=== PATIENT | male | born 1945 | race Caucasian/White ===

== ENCOUNTER 2017-01-31 09:23 | Inpatient (IN) | payer OTHER, BC ==
[~2017-01-31] VITALS: Ht 175.3 cm; Wt 102.8 kg
[2017-01-31] VITALS (28 sets, daily range): BP systolic 71–128; BP diastolic 40–66
--- NOTE | ~2017-01-31 | EKG ---
[address] [address] ELECTROCARDIOGRAM REPORT Name: TEOFILO BANSAL Room #: 245-P ADM IN M.R.#: [id number] Admission: 01/31/17 Attend Phys: Warner Celis DO Discharge: Date of : 43 Report #: [id number] THIS REPORT FOR: //name// [facility] Test Date: 2017-01-31 Test Time: 19:42:42 Pat Name: TEOFILO BANSAL Department: Room: 245 P Gender: M Senior Research Fellow: Viry MEJIA : 1945 Requested By: Teofilo Hobbs Order Number: [id number] MD: George Alcantar Measurements Intervals [place] Rate: 133 P: 245 TX: 123 QRS: 47 QRSD: 117 T: 23 QT: 303 QTc: 451 Interpretive Statements Sinus or ectopic atrial tachycardia Right bundle branch block Low voltage, precordial leads Compared to ECG 01/31/2017 09:45:10 Right bundle-branch block now present Sinus rhythm no longer present Electronically Signed On 01-31-2017 22:56:11 CDT by George Alcantar [email or web address] <ELECTRONICALLY SIGNED> By: George Alcantar MD 01/31/17 2256 41 41 George Alcanatr MD /EPI
--- NOTE | ~2017-01-31 | HC ---
[facility] [place] [address] CONSULTATION Name: TEOFILO BANSAL Room #: 245-P [facility] IN M.R.#: [id number] Admission: 01/31/17 Attend Phys: Warner Celis DO Discharge: Date of : 43 Report #: [id number] THIS REPORT FOR: //name// CC: Teofilo Celis DO DATE OF SERVICE: 01/31/2017 PULMONARY CRITICAL CARE CONSULTATION REFERRING PROVIDER: Dr. Teofilo Hobbs, Dr. Warner Vazquez. REASON FOR CONSULTATION: Dyspnea, sepsis. CHIEF COMPLAINT: Weakness, fever. HISTORY OF PRESENT ILLNESS: Our group was asked to see the patient in consultation while hospitalized in the ICU at [facility]. A pleasant 71-year-old male without any significant past pulmonary history, who presented to the Emergency Department, has had several weeks of general malaise, low-grade fevers and sweats, lightheadedness, dizziness, was felt to be a prostatitis and urinary tract infection, treated with Bactrim. After 2 weeks, it was not improving, felt extremely poor today and presented to the Emergency Department for further evaluation and was noted to be hypotensive, septic and also noted to have a renal calculus in the right ureter and findings consistent with pyelonephritis, underwent percutaneous nephrostomy tube placement, after resuscitation in the Emergency Department and receiving antibiotics quickly decompensating post nephrostomy tube. While in the ICU, became very tachypneic and involved severe lactic acidosis with a pH of 7.2. Initially attempted a BiPAP placement; however, the patient did not tolerate due to claustrophobia and subsequently removed. Our patient currently is reasonably comfortable on low flow nasal cannula O2. ALLERGIES: None known. PAST MEDICAL HISTORY: 1. Coronary artery disease, status post coronary bypass grafting in 2005. 2. Hypertension. 3. Osteoarthritis, status post bilateral total knee arthroplasties. 4. Cervical radiculopathy. 5. History of iliac aneurysm status post percutaneous stent. OUTPATIENT MEDICATIONS: Include Crestor, aspirin, fish oil, allopurinol, Levitra, Aceon, Bystolic and Zetia. [facility] [address] [place] [address] CONSULTATION Name: TEOFILO BANSAL Room #: 245-P [facility] IN .R.#: [id number] Admission: 01/31/17 Attend Phys: Warner Celis DO Discharge: Date of : 43 Report #: [id number] SOCIAL HISTORY: The patient is a remote tobacco use, quitting over 30 years ago. No significant alcohol consumption. 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 FAMILY HISTORY: Negative for any significant pulmonary disease. REVIEW OF SYSTEMS: CONSTITUTIONAL: Fever and chills as well as rigors. ENT: No upper respiratory congestion, rhinorrhea or dysphagia. CARDIOVASCULAR: Known cardiac disease. No significant chest pain or palpitations. GASTROINTESTINAL: Some nausea and vomiting, no diarrhea, constipation or abdominal pain. GENITOURINARY: No dysuria, no frequency. Does have a mild hematuria. No flank pain. INTEGUMENT: Denies any rash. MUSCULOSKELETAL: No joint pains or swelling. PHYSICAL EXAMINATION: VITAL SIGNS: Temperature 38.7, pulse currently 120s and regular, respiratory rate 30, blood pressure 128/59. GENERAL: This is a pleasant elderly male, does not appear in any distress. Speaking in full sentences. HEENT: Clear oropharynx. No thrush. No dental caries. NECK: Supple, no lymphadenopathy. LUNGS: Clear. No wheezes or crackles. CARDIOVASCULAR: Heart regular. No murmurs or gallops. Tachycardic. ABDOMEN: Soft, nontender, no masses. Right percutaneous nephrostomy tube noted to be in place with purulent drainage. EXTREMITIES: Warm, 2+ pulses, no edema. INTEGUMENT: Revealed significant diaphoresis of the head and scalp and upper chest. LABORATORY DATA: White blood cell count 28,000, hemoglobin 12, hematocrit 37, platelet count 272. Sodium is 134, potassium 5.5, chloride 104, bicarbonate 15, BUN 56, creatinine 4.0, glucose IMAGING: Chest x-ray reveals clear lung norman. No infiltrates or effusions, nothing to suggest pulmonary edema. IMPRESSION: 1. Severe sepsis secondary to pyelonephritis. 2. Pyelonephritis. 3. Nephrolithiasis, status post percutaneous nephrostomy tube. [address] [address] CONSULTATION Name: TEOFILO BANSAL Room #: 245-P [facility] IN M.R.#: [id number] Admission: 01/31/17 Attend Phys: Warner Celis, DO Discharge: Date of : 43 Report #: [id number] 4. Acute renal failure. 5. History of coronary artery disease. 6. Severe metabolic/lactic acidosis. SUGGESTIONS: 1. Follow up arterial blood gas. 2. Continue resuscitative efforts with aggressive hydration, nothing on x-ray to suggest any pulmonary edema as he does feel comfortable increasing ongoing IV fluids. 3. Antibiotics per infectious disease service. 4. Continue ICU care. 5. Follow up arterial blood gas and lactate this evening and in a.m. 6. BiPAP if needed. 7. Discussed resuscitate status with the patient. Understand plans for do not resuscitate if any catastrophic event. However, the patient seemed agreeable to intubation if needed to support through current septic event. The patient discussed further with his . Total critical care time 45 minutes, not including procedures. Discussed with family at bedside as well as nursing. By: [id number] Abdulaziz Waters MD /anika
--- NOTE | ~2017-01-31 | EKG ---
[place] [address] [facility] [place] [address] ELECTROCARDIOGRAM REPORT Name: NIMISHASARTHAK Baires 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
--- NOTE | ~2017-01-31 | HC ---
[facility] [place] [address] CONSULTATION Name: SARTHAK BANSAL Room #: 245-P [facility] IN M.R.#: [id number] Admission: 01/31/17 Attend Phys: Warner Celis DO Discharge: Date of : 43 Report #: [id number] THIS REPORT FOR: //name// CC: Bobby Celis REASON FOR THE CONSULTATION: Elevated creatinine. REASON FOR PRESENTATION: Weakness, nausea and vomiting of few weeks' duration. 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 He had some weakness, fever, night sweats, chills, lightheadedness, nausea, vomiting for the last couple of weeks. He visited with his primary care physician and was told that he has a urinary tract infection and was prescribed Bactrim. He continued to have the symptoms. He is known to have nephrolithiasis with remote episode if nephrolithiasis that passed 20 years ago. He presented to the Emergency Room and he was found to be hypotensive with septic shock. He was found to have an obstructive right ureterovesical stone. He had a percutaneous nephroureteral stent placed. On presentation, his creatinine was 3.7. This has picked at 4.2 and it is down to 4.1. He was significantly acidotic when he came in on January 31 with lactic acid of 7.81. He is known to have coronary artery disease, status post CABG. He told me that he has been taking significant Aleve for the last 25 years. PAST MEDICAL HISTORY: 1. Coronary artery disease, status post CABG. 2. Hyperlipidemia. 3. Nephrolithiasis. 4. Recent urinary tract infections. 5. Bilateral total knee arthroplasty. 6. Iliac aneurysm status post percutaneous stent. SOCIAL HISTORY: No current drug or alcohol abuse. 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 FAMILY HISTORY: No known chronic kidney disease in the family. HOME MEDICATIONS: Include the followin. . 2. Bystolic. 3. Aspirin. 4. Aleve. 5. Crestor. 6. Allopurinol. REVIEW OF SYSTEMS: [facility] [address] [place] [address] CONSULTATION Name: SARTHAK BANSAL Room #: 245-P [facility] IN ..#: [id number] Admission: 01/31/17 Attend Phys: Warner Celis DO Discharge: Date of : 43 Report #: [id number] GENERAL: Significant for weakness, fever or chills. CARDIOVASCULAR: No chest pain or palpitation. PULMONARY: No cough or hemoptysis. GASTROINTESTINAL: Significant for nausea or vomiting. GENITOURINARY: No gross hematuria. He had some prostatitis symptoms. MUSCULOSKELETAL: Diffuse arthralgias, mainly in the knees. PHYSICAL EXAMINATION: GENERAL: He is alert and oriented, in no apparent distress. VITAL SIGNS: Blood pressure is 113/60. HEAD AND NECK: No jugular venous distention, no bruit and no thyromegaly. CHEST: Clear to auscultation bilaterally. CARDIOVASCULAR: Regular with no rub detected. ABDOMEN: Soft and nontender with no hepatosplenomegaly. He has a right-sided nephrostomy tube placed. LOWER EXTREMITIES: No edema. LABORATORY VALUES: Reviewed. White blood cell count is 29.1. Cultures still pending. Chemistry from today revealed a sodium of 138, potassium of 5.4, carbon dioxide of 18, BUN of 59 and creatinine of 4.1. IMAGING DATA: Including his abdomen and pelvic CT was reviewed and this revealed as I have stated calculus that is impacted in the right ureterovesicular junction. ASSESSMENT, IMPRESSION AND PLAN: 1. Acute kidney injury. 2. Septic shock due to have an obstructive nephrolithiasis. 3. Coronary artery disease. 4. Anion gap acidosis. 5. Mild hyperkalemia. 6. Status post right nephroureteral stent placement. 7. Continue with the bicarbonate drip. 8. Very adequate urine output. 9. Watch electrolytes. 10. Antibiotics. 11. Status post stent, expect his kidney function to continue to improve. Now, his creatinine has leveled. He has a very long history of nonsteroidal anti-inflammatory medications and we will have just to monitor for now. 12. Off the nonsteroidal anti-inflammatory medications for now. 13. Wean off pressors. 14. We will continue to follow along. <ELECTRONICALLY SIGNED> By: Flora Velazquez MD 02/02/17 [phone] Flora Velazquez MD /nt
--- NOTE | ~2017-01-31 | 2DMMODE ---
[facility] [address] [place] [address] 2 D/M-MODE ECHOCARDIOGRAM Name: SARTHAK BANSAL Room #: 170-22 ADM IN ..#: [id number] Admission: 01/31/17 Attend Phys: Warner Celis, Discharge: Date of : 43 Date of Service: 01/31/17 1644 Report #: [id number] THIS REPORT FOR: //name// APPROVED REPORT Study performed: 01/31/2017 15:22:43 EXAM: Comprehensive 2D, Doppler, and color-flow Echocardiogram Patient Location: Echo lab Status: routine BSA: 2.13 BP: 85/41 mmHg Other Information Study Quality: Adequate Indications Sepsis Dyspnea CAD 2D Dimensions RVDd: 44.55 mm LVEF(%): 39.52 (>50%) IVSd: 11.64 (7-11mm) LVOT Diam: 20.79 (18-24mm) LVDd: 47.55 mm PWd: 11.70 (7-11mm) Ascending Ao: 33.31 (22-36mm) LVDs: 38.43 (25-40mm) Aortic Root: 30.66 mm IVC: 23.00 mm Hodge's LVEF: 39.52 % Volumes Left Atrial Volume (Systole) Single Plane 4CH: 43.08 mL Single Plane 2CH: 39.35 mL LA ESV Index: 22.00 mL/m2 Aortic Valve AoV Peak Esvin.: 1.41 m/s AO Peak Gr.: 7.93 mmHg LVOT Max P.79 mmHg LVOT Max V: 0.84 m/s CHARLY Vmax: 2.01 cm2 Mitral Valve E/A Ratio: 1.2 [facility] [place] [address] 2 D/M-MODE ECHOCARDIOGRAM Name: NIMISHASARTHAK Viry Room #: 170-[facility] IN ..#: [id number] Admission: 01/31/17 Attend Phys: Warner Celis, Discharge: Date of : 43 Date of Service: 01/31/17 1644 Report #: [id number] MV Decel. Time: 199.22 ms MV E Max Esvin.: 1.16 m/s MV A Esvin.: 0.94 m/s MV PHT: 57.77 ms IVRT: 51.90 ms Pulmonary Valve PV Peak Esvin.: 1.05 m/s PV Peak Gr.: 4.39 mmHg Pulmonary Vein P Vein S: 0.78 m/s P Vein A: 0.24 m/s P Vein D: 0.82 m/s P Vein A Dur.: 65.7 msec P Vein S/D Ratio: 0.95 Tricuspid Valve TR Peak Esvin.: 2.77 m/s RAP Estimate: 10.00 mmHg TR Peak Gr.: 30.68 mmHg Left Ventricle The left ventricle is normal size. Regional wall motion is not well visualized but grossly normal. Borderline concentric left ventricular hypertrophy. Left ventricular systolic function is at the lower limits of normal LVEF is 45-50%. Moderate diastolic dysfunction is present (pseudonormal filling). Right Ventricle Right ventricle is dilated. Right ventricle is mildly hypokinetic. Atria The left atrium size is normal. Right atrium is dilated. Aortic Valve The aortic valve is mildly calcified No aortic regurgitation is present. There is no aortic valvular stenosis. Mitral Valve The mitral valve is normal in structure. Mild mitral regurgitation. No evidence of mitral valve stenosis. Tricuspid Valve The tricuspid valve is normal in structure. There is moderate tricuspid regurgitation. The right atrial pressure is estimated at 10 mmHg. PAP is estimated at 41 mmHg. Pulmonic Valve [address] [address] 2 D/M-MODE ECHOCARDIOGRAM Name: SARTHAK BANSAL Room #: 170-22 [facility] IN .#: [id number] Admission: 01/31/17 Attend Phys: Warner Celis, Discharge: Date of : 43 Date of Service: 01/31/17 1644 Report #: [id number] The pulmonary valve is normal in structure. Mild pulmonic regurgitation. Great Vessels The aortic root is normal in size. IVC is dilated and collapses >50% with inspiration. Pericardium There is no pericardial effusion. There is no pericardial effusion. <Conclusion> Left ventricular systolic function is at the lower limits of normal LVEF is 45-50%. Right ventricle is dilated. Right atrium is dilated. The aortic valve is mildly calcified. No aortic valvular stenosis or insufficiency. The mitral valve is normal in structure. Mild mitral regurgitation. Pulmonary artery pressure of 40mmHg No pericardial effusion <ELECTRONICALLY SIGNED> By: Shamar Painting MD, FACC 01/31/17 1644 43 43 Shamar Painting MD, FACC /INF
--- NOTE | ~2017-01-31 | HC ---
[facility] [place] [address] CONSULTATION Name: NIMISHATEOFILO Viry Room #: 245-P [facility] IN M.R.#: [id number] Admission: 01/31/17 Attend Phys: Warner Celis DO Discharge: Date of : 44 Report #: [id number] THIS REPORT FOR: //name// CC: Bobby Celis REASON FOR CONSULTATION: Evaluate regarding septic shock. HISTORY OF PRESENT ILLNESS: The patient is a 71-year-old who presents with a 2-week history with urinary tract symptoms. Placed on Bactrim as an outpatient. Did not improve. Today, he was having intermittent fever and chills associated with gross hematuria. Presented to the Emergency Room where he was found to have hypotension along with a right UVJ stone associated with hydronephrosis. I discussed the case with ER staff. Had urology evaluate and set him up for a percutaneous nephrostomy tube. This was completed recently. He now is back in the intensive care unit having rigors, tachycardia and hypotension. Oxygen saturation has remained stable. He is on high-flow oxygen. The patient was alert, but he was unable to communicate very well due to his compromised state. He, however, was alert and cooperative as best as he could at that time. PAST MEDICAL HISTORY: Coronary artery disease, status post coronary bypass grafting. He has had an ileac aneurysm with a stent in place. Left knee arthroscopy, bilateral total knee replacements, hyperlipidemia and C5-C6 disk disease. ALLERGIES: None known. MEDICATIONS: As noted on his JUN, which were reviewed. He did receive vancomycin, Zosyn and ceftriaxone in the Emergency Room. Other medications as noted on his JUN, which were reviewed. FAMILY HISTORY: Noncontributory. SOCIAL HISTORY: He is a past smoker. No significant alcohol intake. REVIEW OF SYSTEMS: The patient has had no chest pain, no cough or sputum production. No nausea, vomiting or diarrhea. PHYSICAL EXAMINATION: VITAL SIGNS: Temperature is 101.7, heart rate 160, blood pressure in the 80s systolic. GENERAL: The patient was in marked distress with rigors. He was flush in the face. He had a right flank drain in place with clear urine. Review of the Interventional Radiology report showed purulent urine from the ureter at initial ____. He is on a high-flow oxygen. CARDIAC: He was tachycardic. Heart was otherwise without murmur. LUNGS: Scattered rhonchi. [facility] [address] [place] [address] CONSULTATION Name: TEOFILO BANSAL Room #: 245-P [facility] IN [facility]#: [id number] Admission: 01/31/17 Attend Phys: Warner Celis DO Discharge: Date of : 43 Report #: [id number] ABDOMEN: Soft and nontender. GENITOURINARY: External genitalia unremarkable. EXTREMITIES: Unremarkable. LABORATORY STUDIES: Sodium 132; potassium 5.6; bicarb at 20; creatinine 3.7, up from his baseline of 1.3. Liver function tests normal except for a bilirubin of 1.3, albumin at 3.1. Lactate this afternoon was 1.8. Troponin negative. BNP 4837. INR 1.2. Hemoglobin 13.1, platelet count 271,000, white count 35,000 with 11% bands. Urinalysis: Many WBCs, few RBCs, many bacteria. ABG is pending. Blood cultures are pending. Urine culture pending. Ureteral culture pending. CHEST X-RAY: No acute pulmonary infiltrates. CT SCAN OF THE ABDOMEN AND PELVIS: Calculus in the right ureter impacted at the right ureterovesicular junction. IMPRESSION AND PLAN: This is a 71-year-old with septic shock from right pyelonephritis and ureteral obstruction. Recommend combination antibiotic therapy. Sepsis protocol. Full support. The patient does state he wishes to be a do not resuscitate. This will be confirmed. Urology has been consulted. He has acute renal failure. Cardiac status is being monitored. We will continue his antibiotics adjusted for his renal failure. <ELECTRONICALLY SIGNED> By: Teofilo Hobbs MD 02/01/17 0835 [id number] Teofilo Hobbs MD /nt
[~2017-01-31 09:23] MED LIST: ACEON4 MG OR; ASPIRIN EC81 M1 OR; BYSTOLIC 5 MG5 M1 OR; FISHOIL OR; LIPITOR80 MG OR; LOVENOX SQ; NAPROSYN500 MG OR; PERCOCET 5-3251 EACH; VISTARIL 25 MG25 M1 PO; ZETIA10 MG OR; ZYLOPRIM OR
[2017-01-31] MEDS ORDERED: ASPIRIN325 PO (10:05)
[2017-01-31] MEDS ORDERED: CRESTOR5 MG PO (10:06)
[2017-01-31] MEDS ORDERED: ALLOPURINOL 30300 M2 PO (10:07)
[2017-01-31] MEDS ORDERED: LEVITRA20 MG PO (10:08)
[2017-01-31 11:26] LABS: HEMATOCRIT 40.6 % (42.0-52.0); HEMOGLOBIN 13.1 gm/dL (14.0-18.0); MCH 31.4 pg (26.0-34.0); MCHC 32.4 g/dL (28.0-37.0); PLATELET COUNT 271 thou/uL (150-400); RBC 4.18 mil/uL (4.50-6.00); RDW 14.9 % (10.5-14.5)
[2017-01-31 11:27] LABS: MANUAL DIFF YES
[2017-01-31 11:35] LABS: APTT 31.9 Seconds (24.5-32.8); INR 1.2; PROTIME 12.1 Seconds (9.3-11.4)
[2017-01-31 11:45] LABS: URINE BILIRUBIN 1+ (Negative); URINE BLOOD 1+ (Negative); URINE COLOR YELLOW; URINE GLUCOSE-RANDOM* NEGATIVE (Negative); URINE KETONES TRACE (Negative); URINE NITRITE POSITIVE (Negative); URINE PROTEIN (DIPSTICK) TRACE (Negative); URINE SPECIFIC GRAVITY >= 1.030 (1.003-1.035)
[2017-01-31 11:45] LABS: ALBUMIN 3.1 g/dL (3.4-5.0); ALKALINE PHOSPHATASE 118 U/L (46-116); BUN 52 mg/dL (7-18); CALCIUM 9.1 mg/dL (8.5-10.1); CREATININE 3.7 mg/dL (0.7-1.3); DIRECT BILIRUBIN 0.6 mg/dL (<0.1-0.3); GLUCOSE 88 mg/dL (74-106); SGOT 30 U/L (15-37); SGPT 24 U/L (30-65); TOTAL BILIRUBIN 1.3 mg/dL (<0.1-1.0); TOTAL PROTEIN 7.4 g/dL (6.4-8.2); TROPONIN-I < 0.04 ng/mL (<0.04-0.07)
[2017-01-31 11:51] LABS: ANION GAP 14 mmol/L (7-16); CHLORIDE 98 mmol/L (98-107); CO2 20 mmol/L (21-32); POTASSIUM 5.6 mmol/L (3.5-5.1); SODIUM 132 mmol/L (136-145)
[2017-01-31 11:59] LABS: ICTOTEST (BILI CONFIRMATORY) Positive (Negative)
[2017-01-31 12:01] LABS: ABSOLUTE NEUTROPHILS 30.8 thou/uL (1.4-8.2); TOTAL CELL COUNT 100
[2017-01-31 12:02] LABS: ANISOCYTOSIS 1+
[2017-01-31 12:05] LABS: CRYSTALS None Seen /LPF (None Seen)
[2017-01-31 12:06] LABS: HYALINE CASTS 4-10 Moderate /LPF (None Seen); SQUAMOUS 4-10 Moderate /LPF (0-3); URINE WBC >25 Many /HPF (0-5)
[2017-01-31 12:11] LABS: BACTERIA >30 Many /HPF (None Seen); URINE RBC 3-10 Few /HPF (0-2)
[2017-01-31 19:10] LABS: ABG SAMPLE TYPE ARTERIAL; BE(vivo) -14.8 mmol/L (-2 to +3); HCO3 12.1 mmol/L (22.0-26.0); LACTATE 7.81 mmol/L (0.5-2.0); O2(CT) 18.4 mL/dL (15.0-23.0); PCO2 31.8 mmHg (35.0-45.0); PO2 275.9 mmHg (80.0-100.0); STICK SITE L.BRACHIAL; pH 7.197 (7.360-7.450); sO2 99.5 % (92.0-98.0)
[2017-01-31 19:19] LABS: HEMATOCRIT 36.6 % (42.0-52.0); HEMOGLOBIN 11.7 gm/dL (14.0-18.0); MCH 31.2 pg (26.0-34.0); MCHC 31.8 g/dL (28.0-37.0); MCV 97.9 fL (80.0-100.0); RBC 3.74 mil/uL (4.50-6.00); RDW 15.1 % (10.5-14.5); WBC 28.3 thou/uL (4.0-11.0)
[2017-01-31 19:27] LABS: CALCIUM 7.8 mg/dL (8.5-10.1); POTASSIUM 5.5 mmol/L (3.5-5.1)
[2017-01-31 22:37] LABS: ABG SAMPLE TYPE ARTERIAL; HCO3 17.4 mmol/L (22.0-26.0); LACTATE 2.51 mmol/L (0.5-2.0); O2(CT) 16.5 mL/dL (15.0-23.0); O2Hb 95.4 % (92.0-98.0); PCO2 28.1 mmHg (35.0-45.0); PO2 86.8 mmHg (80.0-100.0); pH 7.409 (7.360-7.450); sO2 96.8 % (92.0-98.0); tCO2 18.2 mmol/L (24.0-30.0)
[2017-01-31 22:38] LABS: STICK SITE R.BRACHIAL
[2017-01-31 23:48] LABS: CALCIUM 7.6 mg/dL (8.5-10.1); CREATININE 4.2 mg/dL (0.7-1.3); POTASSIUM 4.8 mmol/L (3.5-5.1)
[2017-02-01] VITALS (69 sets, daily range): BP systolic 84–120; BP diastolic 46–91
[2017-02-01 04:05] LABS: HEMOGLOBIN 11.2 gm/dL (14.0-18.0); MCV 96.8 fL (80.0-100.0); PLATELET COUNT 218 thou/uL (150-400); RBC 3.61 mil/uL (4.50-6.00); RDW 15.3 % (10.5-14.5); WBC 29.1 thou/uL (4.0-11.0)
[2017-02-01 04:06] LABS: MANUAL DIFF YES
[2017-02-01 04:17] LABS: ALBUMIN 2.2 g/dL (3.4-5.0); CALCIUM 7.7 mg/dL (8.5-10.1); CREATININE 4.1 mg/dL (0.7-1.3); POTASSIUM 5.4 mmol/L (3.5-5.1); TOTAL PROTEIN 5.9 g/dL (6.4-8.2)
[2017-02-01 04:44] LABS: ABSOLUTE NEUTROPHILS 26.5 thou/uL (1.4-8.2); TOTAL CELL COUNT 100
[2017-02-01 04:45] LABS: LARGE PLATELETS OCCASIONAL
[2017-02-01 05:14] LABS: ABG SAMPLE TYPE ARTERIAL; BE(vivo) -7.9 mmol/L (-2 to +3); HCO3 16.6 mmol/L (22.0-26.0); LACTATE 2.73 mmol/L (0.5-2.0); O2(CT) 15.5 mL/dL (15.0-23.0); PCO2 30.6 mmHg (35.0-45.0); STICK SITE L.BRACHIAL; pH 7.351 (7.360-7.450); tCO2 17.5 mmol/L (24.0-30.0)
[2017-02-02] VITALS (27 sets, daily range): BP systolic 97–131; BP diastolic 54–76
[2017-02-02 05:46] LABS: HEMATOCRIT 31.5 % (42.0-52.0); HEMOGLOBIN 10.2 gm/dL (14.0-18.0); MCH 31.1 pg (26.0-34.0); MCHC 32.3 g/dL (28.0-37.0); MCV 96.1 fL (80.0-100.0); PLATELET COUNT 173 thou/uL (150-400); RBC 3.28 mil/uL (4.50-6.00); RDW 15.6 % (10.5-14.5); WBC 14.4 thou/uL (4.0-11.0)
[2017-02-02 05:49] LABS: MANUAL DIFF YES
[2017-02-02 06:02] LABS: ALBUMIN 1.7 g/dL (3.4-5.0); CALCIUM 7.8 mg/dL (8.5-10.1); CREATININE 3.5 mg/dL (0.7-1.3); MAGNESIUM 1.8 mg/dL (1.8-2.4); POTASSIUM 3.9 mmol/L (3.5-5.1)
[2017-02-02 08:32] LABS: ANISOCYTOSIS SLIGHT; OVALOCYTES FEW; TOTAL CELL COUNT 100
[2017-02-02 20:36] LABS: CALCIUM 7.8 mg/dL (8.5-10.1); CREATININE 3.3 mg/dL (0.7-1.3); POTASSIUM 4.1 mmol/L (3.5-5.1)
[2017-02-03 03:05] VITALS: BP 117/60
[2017-02-03 03:28] LABS: HEMATOCRIT 32.3 % (42.0-52.0); HEMOGLOBIN 10.5 gm/dL (14.0-18.0); MCH 31.1 pg (26.0-34.0); MCHC 32.6 g/dL (28.0-37.0); MCV 95.4 fL (80.0-100.0); PLATELET COUNT 190 thou/uL (150-400); RBC 3.38 mil/uL (4.50-6.00); RDW 15.5 % (10.5-14.5); WBC 14.8 thou/uL (4.0-11.0)
[2017-02-03 03:32] LABS: MANUAL DIFF YES
[2017-02-03 03:54] LABS: ALBUMIN 1.7 g/dL (3.4-5.0); CALCIUM 8.1 mg/dL (8.5-10.1); MAGNESIUM 1.9 mg/dL (1.8-2.4)
[2017-02-03 04:36] LABS: CREATININE 3.1 mg/dL (0.7-1.3)
[2017-02-03 06:54] VITALS: BP 118/68
[2017-02-03 07:08] LABS: ABSOLUTE NEUTROPHILS 11.5 thou/uL (1.4-8.2); TOTAL CELL COUNT 100
[2017-02-03 10:56] VITALS: BP 120/64
[2017-02-03 15:21] VITALS: BP 120/72
[2017-02-03 19:21] VITALS: BP 129/75
[2017-02-03 23:10] VITALS: BP 109/64
[2017-02-04 03:47] VITALS: BP 123/72
[2017-02-04 05:08] LABS: HEMATOCRIT 32.7 % (42.0-52.0); HEMOGLOBIN 10.6 gm/dL (14.0-18.0); MCHC 32.5 g/dL (28.0-37.0); MCV 95.4 fL (80.0-100.0); PLATELET COUNT 214 thou/uL (150-400); RBC 3.42 mil/uL (4.50-6.00); RDW 15.3 % (10.5-14.5); WBC 13.3 thou/uL (4.0-11.0)
[2017-02-04 05:26] LABS: MANUAL DIFF YES
[2017-02-04 05:30] LABS: ALBUMIN 1.7 g/dL (3.4-5.0); CALCIUM 8.1 mg/dL (8.5-10.1); CREATININE 2.3 mg/dL (0.7-1.3); MAGNESIUM 1.8 mg/dL (1.8-2.4); PHOSPHORUS 3.1 mg/dL (2.5-4.9); POTASSIUM 4.2 mmol/L (3.5-5.1)
[2017-02-04 06:02] LABS: ATYPICAL LYMPHS 1 %; METAMYELOCYTES 1 %; MYELOCYTES 1 %; PROMYELOCYTES 1 %; TOTAL CELL COUNT 100
[2017-02-04 07:21] VITALS: BP 123/72
[2017-02-04 08:00] VITALS: BP 124/69
[2017-02-04 12:00] VITALS: BP 126/71
[2017-02-04 16:00] VITALS: BP 130/61
[2017-02-04 20:06] VITALS: BP 142/67
[2017-02-05 03:41] VITALS: BP 134/75
[2017-02-05 07:17] LABS: HEMATOCRIT 36.8 % (42.0-52.0); HEMOGLOBIN 11.8 gm/dL (14.0-18.0); MCH 30.8 pg (26.0-34.0); MCV 96.1 fL (80.0-100.0); PLATELET COUNT 254 thou/uL (150-400); RBC 3.83 mil/uL (4.50-6.00); RDW 15.2 % (10.5-14.5); WBC 15.9 thou/uL (4.0-11.0)
[2017-02-05 07:26] LABS: MANUAL DIFF YES
[2017-02-05 07:36] LABS: ALBUMIN 1.9 g/dL (3.4-5.0); CREATININE 2.3 mg/dL (0.7-1.3); MAGNESIUM 1.9 mg/dL (1.8-2.4); PHOSPHORUS 2.8 mg/dL (2.5-4.9); POTASSIUM 4.5 mmol/L (3.5-5.1); TOTAL BILIRUBIN 0.7 mg/dL (<0.1-1.0); TOTAL PROTEIN 5.8 g/dL (6.4-8.2)
[2017-02-05 08:50] VITALS: BP 105/63
[2017-02-05 08:50] LABS: ABSOLUTE NEUTROPHILS 11.3 thou/uL (1.4-8.2); METAMYELOCYTES 7 %; MYELOCYTES 3 %; TOTAL CELL COUNT 100
[2017-02-05 08:51] LABS: ANISOCYTOSIS 1+
[2017-02-05 08:52] LABS: POLYCHROMASIA OCCASIONAL
[2017-02-05] MEDS ORDERED: CEFUROXIME250 MG PO (09:02)
[2017-02-05 10:15] VITALS: BP 105/63
[2017-02-05 13:12] VITALS: BP 105/63
== END 2017-02-05 16:45 | disposition home or self-care (01) | DRG 853 ==
LOC: ER 09:23 → ICU 13:00 → EROBS 13:00 → ICU 16:53 → 2N 02-02 12:34
PROVIDERS: Hospitalist; Internal Medicine; Internal Medicine Geriatric Medicine; Internal Medicine Pulmonary Disease; Nurse Practitioner; Specialist
PROC: 02HV33Z Insertion of Infusion Device into Superior Vena Cava, Percutaneous Approach (ICD-10-PCS; principal; 2017-01-31)
PROC: 0T763DZ Dilation of Right Ureter with Intraluminal Device, Percutaneous Approach (ICD-10-PCS; 2017-01-31)
PROC: 0TP93DZ Removal of Intraluminal Device from Ureter, Percutaneous Approach (ICD-10-PCS; 2017-02-04)
PROC: BT111ZZ Fluoroscopy of Right Kidney using Low Osmolar Contrast (ICD-10-PCS; 2017-02-04)
PROC: 0T763DZ Dilation of Right Ureter with Intraluminal Device, Percutaneous Approach (ICD-10-PCS; 2017-02-04)
DX: A41.9 Sepsis, unspecified organism (principal); R65.21 Severe sepsis with septic shock; J96.01 Acute respiratory failure with hypoxia; N17.9 Acute kidney failure, unspecified; N12 Tubulo-interstitial nephritis, not specified as acute or chronic; E87.2 Acidosis; E87.1 Hypo-osmolality and hyponatremia; N13.2 Hydronephrosis with renal and ureteral calculous obstruction; E78.00 Pure hypercholesterolemia, unspecified; M19.90 Unspecified osteoarthritis, unspecified site; I25.10 Atherosclerotic heart disease of native coronary artery without angina pectoris; M10.9 Gout, unspecified; E78.5 Hyperlipidemia, unspecified; Z96.653 Presence of artificial knee joint, bilateral; E87.5 Hyperkalemia; I12.9 Hypertensive chronic kidney disease with stage 1 through stage 4 chronic kidney disease, or unspecified chronic kidney disease; N18.9 Chronic kidney disease, unspecified; I95.9 Hypotension, unspecified; B96.20 Unspecified Escherichia coli [E. coli] as the cause of diseases classified elsewhere; Z98.42 Cataract extraction status, left eye; Z98.41 Cataract extraction status, right eye; Z95.1 Presence of aortocoronary bypass graft; I25.2 Old myocardial infarction; Z87.891 Personal history of nicotine dependence; Z93.6 Other artificial openings of urinary tract status; Z23 Encounter for immunization
CPT/HCPCS: 10078; 10081; 27000

== ENCOUNTER → 2017-02-07 | Outpatient (CLI) | payer OTHER, BC ==
[~2017-02-07] MED LIST changes: +ALLOPURINOL 30300 M2 PO; +ASPIRIN325 PO; +CEFUROXIME250 MG PO; +CRESTOR5 MG PO; +LEVITRA20 MG PO
[2017-02-07 11:54] VITALS: BP 141/68
== END | disposition home or self-care (01) ==
LOC: SPEC 11:05
DX: Z43.6 Encounter for attention to other artificial openings of urinary tract (principal); I10 Essential (primary) hypertension; I25.10 Atherosclerotic heart disease of native coronary artery without angina pectoris; I25.2 Old myocardial infarction; M10.9 Gout, unspecified; E78.5 Hyperlipidemia, unspecified; Z87.891 Personal history of nicotine dependence; Z98.41 Cataract extraction status, right eye; Z98.42 Cataract extraction status, left eye; Z96.653 Presence of artificial knee joint, bilateral; Z95.1 Presence of aortocoronary bypass graft; Z87.442 Personal history of urinary calculi; Z98.890 Other specified postprocedural states; Z79.899 Other long term (current) drug therapy

== ENCOUNTER 2018-08-01 11:07 | Inpatient (IN) | payer OTHER, BC ==
[~2018-08-01] VITALS: Ht 175.3 cm; Wt 104.8 kg
[2018-08-01 11:08] VITALS: BP 170/76
[2018-08-01] MEDS ORDERED: CELEBREX 200 M200 M1 PO (11:31)
[2018-08-01] MEDS ORDERED: ZYLOPRIM300 MG PO (11:31)
[2018-08-01] MEDS ORDERED: BYSTOLIC 5 MG5 M1 PO (11:32)
[2018-08-01] MEDS ORDERED: [UNRECOGNIZED DRUG - OTHER] PO (11:34)
[2018-08-01] MEDS ORDERED: ASPIR 8181 M1 PO (11:37)
[2018-08-01 11:47] LABS: ABSOLUTE NEUTROPHILS 9.4 thou/uL (1.4-8.2); BASOPHILS 0.3 % (0.0-2.0); HEMATOCRIT 43.8 % (42.0-52.0); HEMOGLOBIN 14.8 gm/dL (14.0-18.0); LYMPHOCYTES 30.4 % (24.0-44.0); MCHC 33.8 g/dL (28.0-37.0); MCV 97.6 fL (80.0-100.0); MONOCYTES 6.6 % (1.0-8.0); PLATELET COUNT 270 thou/uL (150-400); POLYS 61.7 % (36.0-66.0); RBC 4.49 mil/uL (4.50-6.00); RDW 13.5 % (10.5-14.5); WBC 15.3 thou/uL (4.0-11.0)
[2018-08-01 11:50] LABS: CALCIUM 9.3 mg/dL (8.5-10.1); CREATININE 1.5 mg/dL (0.7-1.3)
[2018-08-01 11:55] LABS: ALBUMIN 3.8 g/dL (3.4-5.0); TOTAL BILIRUBIN 0.4 mg/dL (<0.1-1.0); TOTAL PROTEIN 7.3 g/dL (6.4-8.2)
[2018-08-01 13:02] VITALS: BP 137/67
[2018-08-01 13:11] VITALS: BP 128/62
[2018-08-01] MEDS ORDERED: PRESERVISION A1 EAC2 PO (13:22)
[2018-08-01 13:30] VITALS: BP 130/67
[2018-08-01 15:56] LABS: URINE BILIRUBIN NEGATIVE (Negative); URINE BLOOD NEGATIVE (Negative); URINE CLARITY CLEAR; URINE COLOR YELLOW; URINE GLUCOSE-RANDOM* NEGATIVE (Negative); URINE KETONES NEGATIVE (Negative); URINE LEUKOCYTES-REFLEX NEGATIVE (Negative); URINE NITRITE-REFLEX NEGATIVE (Negative); URINE PROTEIN (DIPSTICK) NEGATIVE (Negative); URINE UROBILINOGEN 0.2 E.U./dl (0.2-1.0)
[2018-08-01 19:12] VITALS: BP 153/81
--- NOTE | 2018-08-01 19:35 | NUR ---
Received pt from the ER, IV fluids started. Was able to collect UA and sent down to lab (ER order). Alert and oriented x 4, steady gait and is independent of all ADL's. Bowel prep started and consent signed for procedure kory am. POC followed.
[2018-08-02] VITALS (7 sets, daily range): BP systolic 120–138; BP diastolic 52–80
--- NOTE | 2018-08-02 02:12 | NUR ---
ASSUMED CARE AROUND 1900. AXOX4. LOW GI BLEED. EGD/COLONOSCOPY IN AM. NPO AFTER MN. BOWEL PREP COMPLETED. IN THE BEGINNING OF THE BOWEL PREP, BRIGHT RED BLOOD WAS PRESENT MULTIPLE TIMES. AT THE END OF THE PREP, NO MORE RAJ RED BLOOD. PT DOES NOT C/O ABD PAIN AT THIS TIME. IVF FOR HYDRATION AND FLUID SUPPORT. VSS. NO S/S ACUTE DISTRESS NOTED OR REPORTED AT THIS TIME. WILL CONT TO MONITOR FOR ANY CHANGES IN CONDITION.
[2018-08-02 06:01] LABS: HEMATOCRIT 38.3 % (42.0-52.0); MCHC 33.3 g/dL (28.0-37.0); MCV 99.1 fL (80.0-100.0); RBC 3.86 mil/uL (4.50-6.00); RDW 13.5 % (10.5-14.5); WBC 11.7 thou/uL (4.0-11.0)
[2018-08-02 06:09] LABS: HEMOGLOBIN 12.8 gm/dL (14.0-18.0)
[2018-08-02 06:26] LABS: CALCIUM 8.2 mg/dL (8.5-10.1); CREATININE 1.4 mg/dL (0.7-1.3); POTASSIUM 4.4 mmol/L (3.5-5.1)
--- NOTE | 2018-08-02 10:24 | NUR ---
CM assessment completed at bedside with the pt and his . Pt is a&ox4 and indicates he is going for GI scope later this am. He is independent with gait and adl's, drives and is active. He lives with his spouse who is in good health and supportive. He is familiar with [facility] and has a rwalker from a knee replacement. He does not anticipate any dc needs at this time. Cm role introduced. Will remain available should dc needs arise.
--- NOTE | 2018-08-02 13:15 | NUR ---
TOWARDS POC PT A/O X4, VSS, AFEBRILE, DENIES PAIN. PT WENT TO UPPER/LOWER GI PROCEDURE. RESULTS ARE IN. WILL CONTINUE TO MONITOR.
--- NOTE | 2018-08-02 14:57 | NUR ---
OK PER DR JON TO DC TELEMETRY, AND MOVE TO SENIOR SUITES.
--- NOTE | 2018-08-02 16:11 | NUR ---
PATIENT TRANSFERRED TO UNIT 1515. REPORT GIVEN BY NURSE AFTER PATIENT WAS TRANSFERRED TO UNIT. PATIENT SETTLED AND VS TAKEN. FAMILY IN THE ROOM AT BEDSIDE.
[2018-08-02 16:17] LABS: HEMATOCRIT 39.7 % (42.0-52.0); HEMOGLOBIN 13.1 gm/dL (14.0-18.0)
--- NOTE | 2018-08-02 19:30 | NUR ---
PATIENT HAD A BOWEL MOVEMENT AND BEGAN TO HAVE ACTIVE RAJ RED BLEEDING. PATIENT'S VS WERE STABLE. CONTACTED DR. JON WHO WANTED THE PATIENT TRANSFERRED BACK TO . HE LATER CALLED BACK AND REQUESTED FOR AN IR CONSULT TO BE ENTERED IN. DR. PORTER PUT IN AN ORDER FOR A CTA ANGIOGRAM AND IF THE RESULTS WERE POSITIVE. DR. BASURTO WOULD COME IN AND PLACE A COIL. PATIENT TRANSFERRED TO AND REPORT CALLED TO PREVIOUS NURSE ON ROM.
[2018-08-02 21:51] LABS: HEMATOCRIT 37.9 % (42.0-52.0); HEMOGLOBIN 12.6 gm/dL (14.0-18.0)
[2018-08-03 00:16] VITALS: BP 127/74
--- NOTE | 2018-08-03 03:11 | NUR ---
ASSUMED CARE AROUND 1930. AXOX4. CT ABD WITH CONTRAST COMPLETED. NO ACTIVE BLEEDING NOTED FROM IMAGING AT THIS TIME. FROM IR CALLED AND LEFT SPECIFIC CRITERIA FOR EMERGENCY CALL OUT TO HIM. ONLY TO CALL HIM WHEN HR > 110 OR SBP < 90. NOTED AND WILL LEAVE A REPORT. STILL NOTED WITH ACTIVE BLEEDING FROM RECTUM. PT DENIES ANY PAIN, PALPITATIONS, LIGHTHEADEDENSS/DIZZINESS. TELEMETRY RESUMED PER MD ORDER. WILL CONT TO MONITOR FOR ANY CHANGES IN CONDITION.
[2018-08-03 03:14] VITALS: BP 123/70
--- NOTE | 2018-08-03 05:50 | P ---
[facility] [place] [address] PROCEDURE REPORT Name: CHELSEA LUEL Viry Room #: 449-I [facility] IN M.R.#: [id number] Admission: 08/01/18 ������������������ Attend Phys: Gregorio Moreno MD Discharge: ������������������ Date of : 43 Report #: [id number] THIS REPORT FOR: //name// CC: Bobby Moreno MD DATE OF SERVICE: 08/02/2018 PROCEDURE: Diagnostic colonoscopy. The patient of Dr. Bobby Lu and Dr. Gregorio Moreno. INDICATION FOR PROCEDURE: This patient has painless hematochezia of undetermined etiology. Informed consent for this procedure was obtained prior to the administration of any medication. The risks of the procedure, which include bleeding, perforation, infection, complications of sedation and the possibility I could miss something have been explained to the patient and he has indicated his consent by signing. Propofol was slowly titrated before and during this procedure by the anesthesia service. Digital rectal exam did not reveal any palpable abnormalities. There was blood on the glove that was medium red. Then, the Olympus colonoscope was introduced through the anal sphincter and advanced under direct visualization without difficulty to the terminal ileum. Findings noted on withdrawal of the scope. There was some blood in the very distal terminal ileum that appears to have refluxed there from the colon. Further up in the small intestine, I could not see any further evidence of bleeding or any blood. In the cecum, likewise, there was red blood seen, but no source identified. This blood was cleared and nothing was seen. Ascending colon, a few uncomplicated diverticula noted. There is medium red blood in the ascending colon as well and this was cleared with the scope. No lesions are hidden. Hepatic flexure: Red blood seen and cleared with the scope. No source seen. Transverse colon: An uncomplicated diverticula was seen in the transverse colon. There was red blood in the transverse colon. It was cleared with the scope. No active bleeding was seen. Splenic flexure: Red blood seen. This was cleared with the scope and no active bleeding was seen in the splenic flexure. Descending colon: In the distal descending colon, there are multiple uncomplicated diverticula. They are all blood filled. They are washed clean. I could not identify a source of bleeding from any of these, but there is red blood extending from the distal descending colon all the way down almost to the end of the sigmoid colon. There were large [facility] [address] [place] [address] PROCEDURE REPORT Name: NIMISHASARTHAK Viry Room #: 449-I [facility] IN M.R.#: [id number] Admission: 08/01/18 ������������������ Attend Phys: Gregorio Moreno MD Discharge: ������������������ Date of : 43 Report #: [id number] clots seen here that were not present on the way to the cecum. These were all cleared with the scope endoscopically and I could once again wash all of the diverticula in this area clean and could not identify a bleeding diverticulum or source of the blood loss that was present. In the rectum, the mucosa appeared normal and retroflex view did not reveal any further abnormalities. The scope was withdrawn. The patient went to the recovery area in stable condition. She tolerated the procedure well. IMPRESSION: Colonic bleed, most likely from proximal sigmoid distal descending colon area. Red blood seen throughout the colon and up into the terminal ileum. My recommendations at this point because it appears that he has stopped bleeding at this time would be to consult Interventional Radiology to be available should the patient start passing blood per rectum again. Perhaps angiogram could be performed with coiling of the involved vessel. Thank you very much once again for allowing me to participate in his care. ��������������������������������������������� <ELECTRONICALLY SIGNED> ���������������������������������������� By: Fallon Smith DO ��������������������������������������������� 08/03/18 0550 [id number] Fallon Smith DO /nt
--- NOTE | 2018-08-03 05:50 | P ---
[facility] [place] [address] PROCEDURE REPORT Name: SARTHAK BANSAL Room #: 449-I AD[facility] IN M.R.#: [id number] Admission: 08/01/18 ������������������ Attend Phys: Gregorio Moreno MD Discharge: ������������������ Date of : 43 Report #: [id number] THIS REPORT FOR: //name// CC: Bobby Moreno MD PATIENT OF: Dr. Bobby Burleson and Dr. Gregorio Moreno INDICATION FOR PROCEDURE: Painless hematochezia, undetermined etiology. Informed consent for this procedure was obtained prior to the administration of any medication. The risks of the procedure, which include bleeding, perforation, infection, complications of sedation and the possibility I could miss something have been explained to the patient and he has indicated his consent by signing. Anesthesia kindly provided deep sedation for both the EGD and the colonoscopy for this patient today. The Olympus upper videoscope was introduced through the upper esophageal sphincter and advanced under direct visualization to the third portion of the duodenum. Findings are noted on withdrawal of the scope. First of all, I saw no active bleeding in the upper GI tract, whatsoever. The mucosal lining of the second portion of the duodenum appears normal. The duodenal bulb shows some patchy erythema. Nothing is bleeding. Pylorus, normal mucosa. Antrum, normal mucosa. Body, normal mucosa. Cardia and fundus, in the fundus there is a patch of gastritis that is nonbleeding. It looks like it would be about where a pill might fall out of the esophagus and land on the stomach lining. It may be a chemical gastritis from some medications. Retroflex view did not reveal any hiatal hernia. The scope was withdrawn to the esophagus. The Z-line is appropriately located at the top of the gastric folds and appears normal. The esophageal mucosa appears normal throughout its entirety. The scope was withdrawn. The patient was turned for colonoscopy. IMPRESSION: 1. Normal esophagus. 2. Patch of gastritis in the fundus of the stomach approximately 1 cm in size. 3. Duodenitis of the bulb, mild. RECOMMENDATIONS: To proceed with colonoscopy at this time. The source of his hematochezia is not clear from the esophagogastroduodenoscopy. [facility] [address] [place] [address] PROCEDURE REPORT Name: NIMISHASARTHAK Viry Room #: 449-I [facility] IN .R.#: [id number] Admission: 08/01/18 ������������������ Attend Phys: Gregorio Moreno MD Discharge: ������������������ Date of : 43 Report #: [id number] Thank you very much once again for allowing me to participate in his care Dr. Moreno and Dr. Burleson. ��������������������������������������������� <ELECTRONICALLY SIGNED> ���������������������������������������� By: Fallon Smith DO ��������������������������������������������� 08/03/18 0550 [id number] [id number] Fallon Smith, DO /nt
[2018-08-03 07:26] LABS: HEMOGLOBIN 12.4 gm/dL (14.0-18.0)
[2018-08-03 07:36] LABS: CALCIUM 9.1 mg/dL (8.5-10.1); CREATININE 1.4 mg/dL (0.7-1.3); POTASSIUM 4.4 mmol/L (3.5-5.1)
[2018-08-03 07:55] VITALS: BP 115/72
--- NOTE | 2018-08-03 12:42 | NUR ---
TOWARDS POC PT HAS LIGHT BROWN WITH LIGHT RED BLOOD SOFT BM THIS AM, PER PT HIS BM WAS IMPROVED. WILL CONTINUE TO MONITOR.
[2018-08-03 15:54] VITALS: BP 112/55
--- NOTE | 2018-08-03 16:57 | NUR ---
IT IS ANTICPATED THAT PT WILL DISHCARGE HOME WITH NO NEEDS ONCE MEDICALLY STABLE. CM TO CONTINUE TO FOLLOW SHOULD ANY DC NEEDS ARISE.
[2018-08-03 19:00] VITALS: BP 120/54
[2018-08-04 04:48] VITALS: BP 115/64
--- NOTE | 2018-08-04 05:25 | NUR ---
Assumed care at 1845. Pt resting in bed. Had a bm at night with no indications of bleeding. Pt denies pain. Eager to be discharged today. VSS. No identified needs at the moment. Will continue to monitor.
[2018-08-04 07:44] VITALS: BP 129/70
[2018-08-04] MEDS ORDERED: PANTOPRAZOLE SO40 M1 PO (09:00)
[2018-08-04 11:11] VITALS: BP 129/70
--- NOTE | 2018-08-04 11:59 | NUR ---
PT DISCHARGED TO HOME WITH . PT LEFT A&OX4, VSS, AND NO PAIN. PT STATED HE HAD A BOWEL MOVEMENT LAST NIGHT WITH NO BLOOD. NO OTHER C/O OF GI ISSUES AT THIS TIME. PT LEFT WITH ALL BELONGINGS, PRESCRIPTION AND DISCHARGE INSTRUCTIONS.
== END 2018-08-04 12:09 | disposition home or self-care (01) | DRG 378 ==
LOC: ER 11:07 → 4W 12:41 → EROBS 12:41 → 4W 13:19 → SICU 08-02 15:13 → 4W 08-02 19:28
PROVIDERS: Internal Medicine Gastroenterology; Physician Assistant; ADMIT Hospitalist
DX: K57.31 Diverticulosis of large intestine without perforation or abscess with bleeding (principal); N17.9 Acute kidney failure, unspecified; D62 Acute posthemorrhagic anemia; I25.10 Atherosclerotic heart disease of native coronary artery without angina pectoris; M10.9 Gout, unspecified; M19.90 Unspecified osteoarthritis, unspecified site; E78.5 Hyperlipidemia, unspecified; Z96.653 Presence of artificial knee joint, bilateral; E78.00 Pure hypercholesterolemia, unspecified; I72.3 Aneurysm of iliac artery; R91.1 Solitary pulmonary nodule; I12.9 Hypertensive chronic kidney disease with stage 1 through stage 4 chronic kidney disease, or unspecified chronic kidney disease; N18.3 Chronic kidney disease, stage 3 (moderate); Z87.442 Personal history of urinary calculi; Z95.1 Presence of aortocoronary bypass graft; Z95.820 Peripheral vascular angioplasty status with implants and grafts; I25.2 Old myocardial infarction; Z98.42 Cataract extraction status, left eye; Z98.41 Cataract extraction status, right eye; Z93.6 Other artificial openings of urinary tract status; Z87.891 Personal history of nicotine dependence; Z79.82 Long term (current) use of aspirin; Z79.899 Other long term (current) drug therapy; Z82.49 Family history of ischemic heart disease and other diseases of the circulatory system; Z79.1 Long term (current) use of non-steroidal anti-inflammatories (NSAID); K29.70 Gastritis, unspecified, without bleeding; K29.80 Duodenitis without bleeding
CPT/HCPCS: 10045; 62110; 62900; 70005

== ENCOUNTER 2019-04-22 10:53 | Emergency (ER) | payer OTHER, BC ==
[~2019-04-22] VITALS: Ht 172.7 cm; Wt 103.9 kg
[~2019-04-22 10:53] MED LIST changes: +ASPIR 8181 M1 PO; +BYSTOLIC 5 MG5 M1 PO; +CELEBREX 200 M200 M1 PO; +PANTOPRAZOLE SO40 M1 PO; +PRESERVISION A1 EAC2 PO; +ZYLOPRIM300 MG PO; +[UNRECOGNIZED DRUG - OTHER] PO
[2019-04-22 11:15] LABS: URINE BILIRUBIN NEGATIVE (Negative); URINE BLOOD NEGATIVE (Negative); URINE CLARITY CLEAR; URINE COLOR YELLOW; URINE GLUCOSE-RANDOM* NEGATIVE (Negative); URINE KETONES NEGATIVE (Negative); URINE NITRITE-REFLEX NEGATIVE (Negative); URINE PROTEIN (DIPSTICK) TRACE (Negative); URINE SPECIFIC GRAVITY 1.025 (1.005-1.035); URINE UROBILINOGEN 0.2 E.U./dl (0.2-1.0)
[2019-04-22 11:22] LABS: URINE LEUKOCYTES-REFLEX 1+ (Negative)
[2019-04-22 11:28] LABS: MUCUS 4-6 Moderate strn/LPF (None Seen); SQUAMOUS >10 Many /LPF (0-3)
[2019-04-22 11:29] LABS: CASTS None Seen /LPF (None Seen); CRYSTALS None Seen /LPF (None Seen); URINE WBC-REFLEX >25 Many /HPF (0-5)
[2019-04-22 11:31] LABS: BACTERIA-REFLEX 1-9 Few /HPF (None Seen); URINE RBC None Seen /HPF (0-2)
[2019-04-22] MEDS ORDERED: CELEBREX 200 M200 M1 PO (11:52)
[2019-04-22 11:53] LABS: HEMOGLOBIN 16.5 gm/dL (14.0-18.0); MCH 32.8 pg (26.0-34.0); MCHC 33.6 g/dL (28.0-37.0); MCV 97.4 fL (80.0-100.0); PLATELET COUNT 225 thou/uL (150-400); RBC 5.03 mil/uL (4.50-6.00); RDW 13.2 % (10.5-14.5); WBC 23.3 thou/uL (4.0-11.0)
[2019-04-22 12:00] LABS: CALCIUM 9.6 mg/dL (8.5-10.1); CREATININE 1.6 mg/dL (0.7-1.3); POTASSIUM 4.6 mmol/L (3.5-5.1)
[2019-04-22 12:06] LABS: TOTAL BILIRUBIN 0.7 mg/dL (<0.1-1.0); TOTAL PROTEIN 7.9 g/dL (6.4-8.2)
[2019-04-22 12:10] LABS: ABSOLUTE NEUTROPHILS 20.3 thou/uL (1.4-8.2)
[2019-04-22 12:12] LABS: PLATELET ESTIMATE NORMAL
[2019-04-22] MEDS ORDERED: BACTRIM DS TAB1 EACH PO ×2 (13:35→13:51)
[2019-04-22 14:29] VITALS: BP 130/67
== END 2019-04-22 14:30 | disposition home or self-care (01) ==
LOC: ER 10:53
PROVIDERS: Physician Assistant
DX: N39.0 Urinary tract infection, site not specified (principal); N41.9 Inflammatory disease of prostate, unspecified; I10 Essential (primary) hypertension; E78.5 Hyperlipidemia, unspecified; M10.9 Gout, unspecified; Z87.442 Personal history of urinary calculi; Z87.891 Personal history of nicotine dependence

== ENCOUNTER → 2020-01-16 | Outpatient (CLI) | payer OTHER, BC ==
[~2020-01-16] MED LIST changes: +BACTRIM DS TAB1 EACH PO
== END ==
LOC: SJCVC 13:48
PROVIDERS: ATTEND Internal Medicine Cardiovascular Disease
DX: R94.31 Abnormal electrocardiogram [ECG] [EKG] (principal); I25.810 Atherosclerosis of coronary artery bypass graft(s) without angina pectoris; I10 Essential (primary) hypertension; E78.00 Pure hypercholesterolemia, unspecified; I65.23 Occlusion and stenosis of bilateral carotid arteries; I73.9 Peripheral vascular disease, unspecified; I72.3 Aneurysm of iliac artery; Z79.82 Long term (current) use of aspirin; Z79.899 Other long term (current) drug therapy; Z82.49 Family history of ischemic heart disease and other diseases of the circulatory system; Z95.1 Presence of aortocoronary bypass graft; Z87.891 Personal history of nicotine dependence

== ENCOUNTER → 2020-01-25 | Outpatient (CLI) | payer OTHER, BC | LOC: SJCVCIMAG 07:40 | PROVIDERS: ATTEND Internal Medicine Cardiovascular Disease | DX: I72.3 Aneurysm of iliac artery (principal); I73.9 Peripheral vascular disease, unspecified; Z95.820 Peripheral vascular angioplasty status with implants and grafts ==

== ENCOUNTER → 2020-10-06 | Outpatient (CLI) | payer OTHER, BC | LOC: SJCVC 09:39 | PROVIDERS: ATTEND Internal Medicine Cardiovascular Disease | DX: R94.31 Abnormal electrocardiogram [ECG] [EKG] (principal); I25.810 Atherosclerosis of coronary artery bypass graft(s) without angina pectoris; I10 Essential (primary) hypertension; E78.00 Pure hypercholesterolemia, unspecified; I72.3 Aneurysm of iliac artery; I73.9 Peripheral vascular disease, unspecified; I65.23 Occlusion and stenosis of bilateral carotid arteries; I77.9 Disorder of arteries and arterioles, unspecified; Z95.1 Presence of aortocoronary bypass graft; Z88.8 Allergy status to other drugs, medicaments and biological substances; Z79.82 Long term (current) use of aspirin; Z79.899 Other long term (current) drug therapy; Z87.891 Personal history of nicotine dependence; Z72.89 Other problems related to lifestyle ==

== ENCOUNTER → 2020-11-26 | Outpatient (CLI) | payer OTHER, BC | LOC: SJCVCIMAG 07:41 | PROVIDERS: ATTEND Internal Medicine Cardiovascular Disease | DX: I65.23 Occlusion and stenosis of bilateral carotid arteries (principal); I49.3 Ventricular premature depolarization; E04.2 Nontoxic multinodular goiter; R06.00 Dyspnea, unspecified; I77.9 Disorder of arteries and arterioles, unspecified; I10 Essential (primary) hypertension; I25.10 Atherosclerotic heart disease of native coronary artery without angina pectoris; E78.5 Hyperlipidemia, unspecified; I73.9 Peripheral vascular disease, unspecified; Z79.82 Long term (current) use of aspirin; Z79.899 Other long term (current) drug therapy; Z87.891 Personal history of nicotine dependence; Z86.73 Personal history of transient ischemic attack (TIA), and cerebral infarction without residual deficits ==